=== PATIENT | male | born 1955 | race Caucasian/White ===

== ENCOUNTER → 2020-05-26 14:28 | Outpatient (CLI) | payer OTHER | END | disposition home or self-care (01) | LOC: D.LABREF 14:28 | PROVIDERS: ATTEND Orthopaedic Surgery | DX: M17.11 Unilateral primary osteoarthritis, right knee (principal) ==

== ENCOUNTER 2020-05-27 13:09 | Observation (INO) | payer OTHER ==
[~2020-05-27] VITALS: Ht 172.7 cm; Wt 87.7 kg
[2020-06-28] MEDS ORDERED: SOMA350 MG PO (13:27)
[2020-06-28] MEDS ORDERED: ADDERALL 10 MG10 MG PO (13:28)
[2020-06-28] MEDS ORDERED: ZOLPIDEM TARTRATE PO (13:28)
[2020-06-28] MEDS ORDERED: NEURONTIN600 MG PO (13:29)
[2020-06-28] MEDS ORDERED: TOPROL XL50 MG PO (13:30)
[2020-06-28] MEDS ORDERED: LIPITOR20 MG PO (13:31)
[2020-06-28] MEDS ORDERED: MOBIC7.5 MG PO (13:31)
[2020-06-29 13:42] LABS: BASOPHILS 0.3 % (0-2); EOSINOPHILS 1.3 % (0-7); HEMATOCRIT 39.7 % (42.0-54.0); HEMOGLOBIN 13.7 g/dL (13.5-17.5); IMMATURE GRANULOCYTES 0.1 % (0-5); LYMPHOCYTE ABS# 2.14 10x3/uL (1.32-3.57); LYMPHOCYTES 27.9 % (15-50); MCH 32.9 pg (26.0-34.0); MCHC 34.5 g/dL (31.0-37.0); MCV 95.4 fL (80.0-100.0); MEAN PLATELET VOLUME 9.3 fL (7.4-10.4); MONOCYTES 11.2 % (2-11); NEUTROPHIL ABS# 4.55 10x3/uL (1.78-5.38); NEUTROPHILS 59.2 % (40-80); PLATELET COUNT 297 10x3/uL (130-400); RBC 4.16 10x6/uL (4.20-6.10); RDW 12.4 % (11.5-14.5); WBC 7.7 10x3/uL (4.8-10.8)
[2020-06-29 13:53] LABS: ANION GAP 8.1 mmol/L (8-16); BILIRUBIN NEGATIVE (NEGATIVE); CARBON DIOXIDE 32.8 mmol/L (21.0-32.0); CREATININE - SERUM 1.1 mg/dL (0.6-1.3); KETONE NEGATIVE (NEGATIVE); NITRITE NEGATIVE (NEGATIVE); POTASSIUM - SERUM 3.9 mmol/L (3.5-5.1); UROBILINOGEN NORMAL mg/dL (< 2)
[2020-06-29 13:55] LABS: APTT 30.9 SECONDS (22.8-39.4); INR 1.1 (0.85-1.17); PROTIME 13.1 SECONDS (11.6-15.0)
[2020-07-05] VITALS (11 sets, daily range): BP systolic 118–156; BP diastolic 64–90; Ht 172.7 cm; Wt 87.7 kg
--- NOTE | 2020-07-05 07:39 | NUR ---
CAUTERY PAD PLACED ON LEFT THIGH. PLASMA BLADE USED ON SETTING 6/8. AQUAMANTYS USED ON SETTING 170. CAUTERY PAD LOT#[id number] EXP.01/22/2022
[2020-07-05 10:36] LABS: BASOPHILS 0.1 % (0-2); EOSINOPHILS 0.1 % (0-7); HEMATOCRIT 35.2 % (42.0-54.0); HEMOGLOBIN 12.3 g/dL (13.5-17.5); IMMATURE GRANULOCYTES 0.2 % (0-5); LYMPHOCYTE ABS# 0.59 10x3/uL (1.32-3.57); LYMPHOCYTES 4.3 % (15-50); MCH 32.9 pg (26.0-34.0); MCHC 34.9 g/dL (31.0-37.0); MCV 94.1 fL (80.0-100.0); MEAN PLATELET VOLUME 9.4 fL (7.4-10.4); MONOCYTES 0.4 % (2-11); NEUTROPHIL ABS# 13.17 10x3/uL (1.78-5.38); NEUTROPHILS 94.9 % (40-80); PLATELET COUNT 276 10x3/uL (130-400); RBC 3.74 10x6/uL (4.20-6.10); RDW 12.1 % (11.5-14.5); WBC 13.9 10x3/uL (4.8-10.8)
[2020-07-05 10:44] LABS: ALBUMIN 3.5 g/dL (3.4-5.0); ALKALINE PHOSPHATASE 67 U/L (30-120); ALT (SGPT) 27 U/L (10-68); BILIRUBIN - TOTAL 0.47 mg/dL (0.2-1.3); CALC OSMOLALITY 284 mosm/kg (275-300); CALCIUM 8.3 mg/dL (8.5-10.1); CHLORIDE - SERUM 105 mmol/L (98-107); CREATININE - SERUM 0.9 mg/dL (0.6-1.3); POTASSIUM - SERUM 3.6 mmol/L (3.5-5.1); SODIUM 139 mmol/L (136-145); UREA NITROGEN 27 mg/dL (7-18); eGFR NON AFRICAN AMERICAN 90 mL/min (90-120)
[2020-07-05 10:48] LABS: GLUCOSE 139 mg/dL (74-106)
--- NOTE | 2020-07-05 13:38 | OP ---
PATIENT NAME: HARSHA REN MEDICAL RECORD: [id number] :57 LOCATION:D. D.1210 ADMISSION DATE:07/05/20 SURGEON: ALDEN QUINTANILLA, DATE OF OPERATION: 07/05/2020 PROCEDURE PERFORMED: Right total knee arthroplasty. PREOPERATIVE DIAGNOSIS: Right knee osteoarthritis. POSTOPERATIVE DIAGNOSIS: Right knee osteoarthritis. INDICATIONS: Mr. Ren is a 65-year-old male who has had right knee pain for quite some time. He has tried all manner nonoperative treatment including injections, physical therapy to no avail. He started dealing with the pain and affecting his activities of daily living. He is aware of the risks including infection, bleeding, damage to nerves or vessels, need for further surgery, fracture, loosening of the implants, continued pain, loss of motion, blood clots and even and he signed the consent. SURGEON: Alden Quintanilla MD DESCRIPTION OF SURGERY: The patient received a block by anesthesia preoperatively, taken to the operative suite, given 2 grams of Ancef, 80 mg of gentamicin, a gram of TXA, sedated and LMA was placed. The right lower extremity was then prepped and draped in sterile fashion. A timeout was performed. Everyone was in agreeance with the correct side, site, patient and procedure. I then began by marking out the incision on the anterior knee and covered in Ioban. I then used a 10-blade scalpel, made careful dissection down to the capsule, made a medial parapatellar approach to the knee coagulating any bleeding as we went with the Aquamantys. I then removed part of the fat pad, everted the patella and milled it down and drilled for a 32 patella. I then mixed the cement and put cement on the patella and on the implant and screws in place, removed excess cement. I then exposed the femur, removed the ACL and drilled into the femoral canal. I then cut the distal femur off the intramedullary guide and removed the bone. I then exposed the tibia, cut it and then removed the menisci, recut the tibia to fit the implant and put 10 extension block and it fit very well. I then flexed the knee up and sized the femur to be an 8. An eight 4-in-1 cutting block was then put on the femur and cut through the 4-in-1 cutting block. I then sized the tibia to be an F, pinned into place and impacted on the 8 trial and went up to a 13 poly in between and it fit very well, had good stability in varus valgus stress in flexion, extension and mid flexion. I then removed that, drilled lug holes for the femur, drilled the holes for the tibia, removed the trials, impacted the implants on and put in the poly and squeezed it into place. I then trialled. I ranged the knee, it fit very well, had good motion and good stability to varus and valgus stress in flexion and extension. I then put in a 10% povidone iodine and 500 mL of normal saline solution. I had released the squeezer for the patella at 10 minutes. I then irrigated out the knee with normal saline and put in the joint cocktail injected into the periosteum and then the quad and along the medial tibia. I then put in Rosaura and vancomycin and tobramycin powder and closed the capsule with #1 Vicryl in [id number] fashion and then ran the Stratafix barbed suture along the capsule. Hernan Alonso, certified surgical first aid nurse student then closed the skin with 2-0 Vicryl in inverted interrupted fashion, placed it on the ZipLine, Adaptic, 4 x 4s, ABD, Webril, Gianni wrap and FÁTIMA hose stocking for the knee. He was then awakened and taken to OPERATIVE REPORT [id number] HARSHA REN recovery in stable condition. BLOOD LOSS: 200 mL. COMPLICATIONS: None. TRANSINT:[id number] Voice Confirmation ID: [id number] DOCUMENT ID: [id number] ALDEN QUINTANILLA DO at 1338 CC: [id number] DICTATION DATE: 07/05/20 0848 STAMP CLASSIFIER: 07/05/20 1306 ADM IN [place] [id number] [place] [address]
--- NOTE | 2020-07-05 19:00 | NUR ---
REPORT GIVEN BY JONG CARBONE
--- NOTE | 2020-07-05 20:00 | NUR ---
PT ASSESSMENT COMPLETED. PT IS DOING WELL. PT STATES THAT HE DOES NOT WANT PERCOCET FOR PAIN B/C IT MAKES HIM SICK AT HIS STOMACH. I TOLD HIM I'D MAKE NOTE OF THAT. INSTRUCTED PT HOW TO USE IS. PT DID VERY WELL. PT HAS 1/2 NS INFUSING AT 50 ML/HR IN HIS RIGHT FOREARM. NO C/O AT THIS TIME.
--- NOTE | 2020-07-05 21:30 | NUR ---
PM MEDS GIVEN. PT RECEIVED AMBIEN FOR SLEEP AND TORADOL FOR PAIN WITH HIS OTHER MEDS. HE HAS NO C/O.
[2020-07-06 01:00] VITALS: BP 100/56
--- NOTE | 2020-07-06 01:00 | NUR ---
VS TAKEN. PT IS NOT C/O PAIN AT THIS TIME. HE HAS BEEN AWAKE FOR A LITTLE WHILE B/C HE CAN'T SLEEP. VOIDED 400 ML
[2020-07-06 04:10] VITALS: BP 102/58
--- NOTE | 2020-07-06 04:21 | NUR ---
PT WAS GIVEN IV TORADOL. HE RATES HIS PAIN A 6. I TOLD HIM TO LET DR. QUINTANILLA KNOW THAT PERCOCET MAKES HIM SICK B/C HE WOULD PROBABLY NEED OTHER MEDS WHEN HE STARTS THERAPY.
--- NOTE | 2020-07-06 06:29 | NUR ---
PT RESTING QUIETLY IN HIS ROOM. CPM RUNNING
--- NOTE | 2020-07-06 07:30 | NUR ---
AWAKE AND ALERT. ORIENTED X3. NO C/OA AT THIS TIME. LUNGS ARE CLEAR BILATERALLY, NO COUGH NOTED. SKIN IS INTACT WTIHOUT REDNESS EXCEPT INCISION TO RIGHT KNEE, WHICH HAS A DRY INTACT DRESSING INPLACE. IV TO RIGHT FOREARM IS PATENT WITHOUT REDNESS AT INSERTION SITE. DENIES NEEDS.
[2020-07-06 07:46] VITALS: BP 135/62
[2020-07-06 07:51] LABS: HEMATOCRIT 32.7 % (42.0-54.0); HEMOGLOBIN 11.4 g/dL (13.5-17.5); MCHC 34.9 g/dL (31.0-37.0); MCV 94.8 fL (80.0-100.0); MEAN PLATELET VOLUME 9.6 fL (7.4-10.4); RBC 3.45 10x6/uL (4.20-6.10); RDW 12.4 % (11.5-14.5)
[2020-07-06 08:06] LABS: ALBUMIN 3.5 g/dL (3.4-5.0); ALKALINE PHOSPHATASE 60 U/L (30-120); BILIRUBIN - TOTAL 0.52 mg/dL (0.2-1.3); CALC OSMOLALITY 281 mosm/kg (275-300); CALCIUM 8.7 mg/dL (8.5-10.1); CARBON DIOXIDE 28.5 mmol/L (21.0-32.0); CHLORIDE - SERUM 102 mmol/L (98-107); CREATININE - SERUM 0.9 mg/dL (0.6-1.3); GLUCOSE 94 mg/dL (74-106); PROTEIN - SERUM 5.8 g/dL (6.4-8.2); SODIUM 140 mmol/L (136-145); UREA NITROGEN 21 mg/dL (7-18); eGFR NON AFRICAN AMERICAN 90 mL/min (90-120)
[2020-07-06 08:08] LABS: ALT (SGPT) 20 U/L (10-68); POTASSIUM - SERUM 4.3 mmol/L (3.5-5.1)
--- NOTE | 2020-07-06 09:00 | NUR ---
ATE MOST OF BREAKFAST. TOOK AM MEDS WITHOUT DIFFICULTY. DENIES NEEDS.
--- NOTE | 2020-07-06 10:00 | NUR ---
AMBULATED OVER 200 FEET WITH RW SBA. NO INCREASED PAIN WITH ACTIVITY. POSITIONED IN CHIAR AT BEDSIDE FOR COMFORT.
--- NOTE | 2020-07-06 11:32 | MORECARE ---
CASE MANAGEMENT DISCHARGE SUMMARY PATIENT: HARSHA SCHUMACHER UNIT: [id number] ADM DATE: 07/05/20 AGE: 65 : 57 SEX: M ROOM/BED: D.1210 AUTHOR: TINA,DOC PHYSICIAN: REFERRING PHYSICIAN: MARYCHUY QUINTANILLA DO DATE OF SERVICE: 07/06/20 Case Management Discharge Planning Summary DCP REVIEW SUMMARY ANTICIPATED D/C DATE: 07/06/2020 EXPECTED LOS : 1 CASE STATUS: DCP Initiated INITIAL REVIEW: 07/06/2020 INITIAL REVIEWER: Kalyani Naik FINAL DISCHARGE DISPOSITION: : FINAL REVIEWER: FINAL REVIEW DATE: DCP Focus Questions & Answers DCP Screen QUESTION: ANSWER High Risk Factors: : None Walking limitation: Patient stated self rated walking limitation present? : No Age: : 46 - 65 Prior living environment: : Lives with others Disability ranking: : Grade 1: No significant disability DCP Evaluation QUESTION: ANSWER Patient's ability to cope with chronic illness : d. No chronic illness Would patient like to participate in any Care Coordination programs (if applicable): : Not applicable Mental health screen: : No mental health history DCP Re-evaluation QUESTION: ANSWER Would patient like to participate in any Care Coordination programs (if applicable): : Not applicable PATIENT: HARSHA SCHUMACHER ENCOUNTER: [id number] MEDICAL RECORD#: [id number] ADMISSION DATE: 07/05/2020 DISCHARGE DATE: ATTENDING MD: MARYCHUY WILSON : AGE: 65 MARITAL STATUS: S DC PLAN ID: [id number] FACILITY: [facility] PRINTED ON: 07/06/20 11:32 CT All edits/amendments must be made on the electronic document DICTATION DATE: 07/06/20 113 OIL FURNACE INSTALLER: DM 07/06/20 1132 RPT#: [id number] DC DATE: STATUS: ADM IN [facility] [address] [place] [address] END OF REPORT
--- NOTE | 2020-07-06 11:43 | MORECARE ---
CASE MANAGEMENT DISCHARGE SUMMARY PATIENT: HARSHA SCHUMACHER UNIT: [id number] ADM DATE: 07/05/20 AGE: 65 : 57 SEX: M ROOM/BED: D.1210 AUTHOR: TINA,DOC PHYSICIAN: REFERRING PHYSICIAN: MARYCHUY QUINTANILLA DO DATE OF SERVICE: 07/06/20 Case Management Discharge Planning Summary COMMENTS ENTERED DATE: 07/06/20 11:34 CT COMMENT TYPE: Discharge Planning REVIEWER: Kalyani Naik CM met with patient to complete initial dc planning assessment. CM educated patient on the CM role and verbal consent given by patient to complete assessment. CM verified patient's address, phone number, and emergency contact phone numbers. Patient lives in a one level condo with his sister. At discharge patient plans to return and feels this is a safe discharge. CM discussed availability of home health, rehab services, and medical equipment. Patient chose outpatient therapy at [facility]. CM called and spoke to Tae. His first visit will be tomorrow at 1100. Patient reports transportation to and from therapy will be his sister. Transportation provider at discharge will be his sister. CM will continue to follow and will assist as needed with dc plans/needs. OP PT - [facility] 07/07 AT 1100 DCP REVIEW SUMMARY ANTICIPATED D/C DATE: 07/06/2020 EXPECTED LOS : 1 CASE STATUS: DCP Initiated INITIAL REVIEW: 07/06/2020 INITIAL REVIEWER: Kalyani Naik FINAL DISCHARGE DISPOSITION: : FINAL REVIEWER: FINAL REVIEW DATE: DCP Focus Questions & Answers DCP Screen QUESTION: ANSWER High Risk Factors: : None Walking limitation: Patient stated self rated walking limitation present? : No Age: : 46 - 65 Prior living environment: : Lives with others Disability ranking: : Grade 1: No significant disability DCP Evaluation QUESTION: ANSWER Patient and/or caregiver agree upon recommended discharge plan? : Yes Patient's current cognitive status: : *Oriented to person, place, situation, time and present Patient gives permission to discuss discharge plans with: (name, relationship and number) : Sol Pulido - sister - [phone] Patient's ability to cope with chronic illness : d. No chronic illness Does the patient have the ability to pay for or attain post discharge needs / services? : Yes Functional screen assessment: : No issues identified Physical Status: : Independent with ADL's Equipment needed for post hospitalization: : None Is there a likelihood that the patient will require additional services to return to the preadmission environment? : No Living Arrangements: : Home with others Results of this evaluation have been discussed with: : Patient Patient with capacity for self-care or can be cared for in same environment as prior to hospitalization? : Yes Living arrangements comments: : Sol Pulido - sister Baseline cognitive status: : *Oriented to person, place, situation, time and present Physical environment modification needed / anticipated for discharge: : No Medication Management: : Patient states can afford medications Planned post hospital services available for patient? : Yes Pharmacy name(s): : [facility] Planned post hospital services covered by insurance plan? : Yes Does Patient have transportation to get home and to follow-up medical appointments when discharged from the hospital? : Yes Would patient like to participate in any Care Coordination programs (if applicable): : Not applicable Equipment in use: : Walker - Rolling Equipment in use: : Shower Chair Equipment in use: : Other Other Equipment comments: : CPM ELEVATED TOILET SEAT Mental health screen: : No mental health history Abuse/Neglect: : None Resources / Services in place: : None DCP Re-evaluation QUESTION: ANSWER Would patient like to participate in any Care Coordination programs (if applicable): : Not applicable PATIENT: HARSHA SCHUMACHER ENCOUNTER: [id number] MEDICAL RECORD#: [id number] ADMISSION DATE: 07/05/2020 DISCHARGE DATE: ATTENDING MD: MARYCHUY WILSON : AGE: 65 MARITAL STATUS: S DC PLAN ID: [id number] FACILITY: [facility] PRINTED ON: 07/06/20 11:43 CT All edits/amendments must be made on the electronic document DICTATION DATE: 07/06/20 1143 HARVESTING SUPERVISOR: DM 07/06/20 1143 RPT#: [id number] DC DATE: STATUS: ADM IN [facility] [address] [place] [address] END OF REPORT
[2020-07-06] MEDS ORDERED: ELIQUIS2.5 MG PO (12:22)
[2020-07-06] MEDS ORDERED: REQUIP0.25 MG PO (12:23)
[2020-07-06] MEDS ORDERED: VISTARIL50 MG PO (12:23)
[2020-07-06] MEDS ORDERED: ULTRAM50 MG PO (12:23)
--- NOTE | 2020-07-06 13:45 | NUR ---
DISCHARGED TO HOME AMBULATORY WITH SISTER. DISCHARGE INSTRUCTIONS GIVEN BOTH VERBALLY AND WRITTEN. ALL QUESTIONS ANSWERED. PATIENT AND SISTER VERBALIZED UNDERSTANDING OF SAME. DRESSING TO RIGHT KNEE CHANGED, INCISION IS CLEAN DRY AND WELL APPROXIMATED. SL TO RIGHT FOREARM D/C WITH CATHETER INTACT. NEEDED PRESCRIPTIONS GIVEN TO PATIENT. EXTRA DRESSINGS SENT HOME.
--- NOTE | 2020-07-06 15:33 | MORECARE ---
CASE MANAGEMENT DISCHARGE SUMMARY PATIENT: HARSHA SCHUMACHER UNIT: [id number] ADM DATE: 07/05/20 AGE: 65 : 57 SEX: M ROOM/BED: D.1210 AUTHOR: TINA,DOC PHYSICIAN: REFERRING PHYSICIAN: MARYCHUY QUINTANILLA DO DATE OF SERVICE: 07/06/20 Case Management Discharge Planning Summary COMMENTS ENTERED DATE: 07/06/20 11:34 CT COMMENT TYPE: Discharge Planning REVIEWER: Kalyani Naik CM met with patient to complete initial dc planning assessment. CM educated patient on the CM role and verbal consent given by patient to complete assessment. CM verified patient's address, phone number, and emergency contact phone numbers. Patient lives in a one level condo with his sister. At discharge patient plans to return and feels this is a safe discharge. CM discussed availability of home health, rehab services, and medical equipment. Patient chose outpatient therapy at [facility]. CM called and spoke to Tae. His first visit will be tomorrow at 1100. Patient reports transportation to and from therapy will be his sister. Transportation provider at discharge will be his sister. CM will continue to follow and will assist as needed with dc plans/needs. OP PT - [facility] 07/07 AT 1100 DCP REVIEW SUMMARY ANTICIPATED D/C DATE: 07/06/2020 EXPECTED LOS : 1 CASE STATUS: DCP Initiated INITIAL REVIEW: 07/06/2020 INITIAL REVIEWER: Kalyani Naik FINAL DISCHARGE DISPOSITION: : FINAL REVIEWER: FINAL REVIEW DATE: DCP Focus Questions & Answers DCP Screen QUESTION: ANSWER High Risk Factors: : None Walking limitation: Patient stated self rated walking limitation present? : No Age: : 46 - 65 Prior living environment: : Lives with others Disability ranking: : Grade 1: No significant disability DCP Evaluation QUESTION: ANSWER Patient and/or caregiver agree upon recommended discharge plan? : Yes Patient's current cognitive status: : *Oriented to person, place, situation, time and present Patient gives permission to discuss discharge plans with: (name, relationship and number) : Sol Pulido - sister - [phone] Patient's ability to cope with chronic illness : d. No chronic illness Does the patient have the ability to pay for or attain post discharge needs / services? : Yes Functional screen assessment: : No issues identified Physical Status: : Independent with ADL's Equipment needed for post hospitalization: : None Is there a likelihood that the patient will require additional services to return to the preadmission environment? : No Living Arrangements: : Home with others Results of this evaluation have been discussed with: : Patient Patient with capacity for self-care or can be cared for in same environment as prior to hospitalization? : Yes Living arrangements comments: : Sol Pulido - sister Baseline cognitive status: : *Oriented to person, place, situation, time and present Physical environment modification needed / anticipated for discharge: : No Medication Management: : Patient states can afford medications Planned post hospital services available for patient? : Yes Pharmacy name(s): : [facility] Planned post hospital services covered by insurance plan? : Yes Does Patient have transportation to get home and to follow-up medical appointments when discharged from the hospital? : Yes Would patient like to participate in any Care Coordination programs (if applicable): : Not applicable Equipment in use: : Walker - Rolling Equipment in use: : Shower Chair Equipment in use: : Other Other Equipment comments: : CPM ELEVATED TOILET SEAT Mental health screen: : No mental health history Abuse/Neglect: : None Resources / Services in place: : None DCP Re-evaluation QUESTION: ANSWER Would patient like to participate in any Care Coordination programs (if applicable): : Not applicable PATIENT: HARSHA SCHUMACHER ENCOUNTER: [id number] MEDICAL RECORD#: [id number] ADMISSION DATE: 07/05/2020 DISCHARGE DATE: 07/06/2020 ATTENDING MD: MARYCHUY WILSON : AGE: 65 MARITAL STATUS: S DC PLAN ID: [id number] FACILITY: [facility] PRINTED ON: 07/06/20 15:33 CT All edits/amendments must be made on the electronic document DICTATION DATE: 07/06/20 153 MACHINE CANDLE MOLDER: CHOLO 07/06/20 153 RPT#: [id number] DC DATE:07/06/20 STATUS: DIS IN [facility] [address] [place] [address] END OF REPORT
[2020-07-06] MEDS ORDERED: ZOFRAN ODT4 MG/UDTAB PO (23:00)
[2020-07-06] MEDS ORDERED: HYDROCODON-ACE1 EA10 PO (23:00)
== END 2020-07-06 13:45 | disposition home or self-care (01) ==
LOC: D.M3 07-05 05:27 → OBSVTIME 07-05 05:27 → D.M3 07-05 05:27 → D.SDCHOLD 07-05 05:27 → D.OPS 07-05 07:00 → EDSTATUS 07-05 07:00 → D.SDCHOLD 07-05 07:00 → D.M3 07-05 09:30
PROVIDERS: Emergency Medicine; Family Medicine; ADMIT Orthopaedic Surgery; ATTEND Orthopaedic Surgery
DX: M17.11 Unilateral primary osteoarthritis, right knee (principal); I10 Essential (primary) hypertension

== ENCOUNTER 2020-06-29 08:00 | Outpatient (CLI) | payer OTHER ==
[~2020-06-29 08:00] MED LIST: ADDERALL 10 MG10 MG PO; LIPITOR20 MG PO; MOBIC7.5 MG PO; NEURONTIN600 MG PO; SOMA350 MG PO; TOPROL XL50 MG PO; ZOLPIDEM TARTRATE PO
[2020-07-06 21:59] VITALS: BMI 27.7
== END 2020-06-29 08:01 | disposition home or self-care (01) ==
LOC: D.OPS 08:00
PROVIDERS: ATTEND Internal Medicine
DX: M17.11 Unilateral primary osteoarthritis, right knee (principal); I10 Essential (primary) hypertension

== ENCOUNTER 2020-07-06 21:54 | Emergency (ER) | payer OTHER ==
[~2020-07-06] VITALS: Ht 172.7 cm; Wt 82.7 kg
[~2020-07-06 21:54] MED LIST changes: +ELIQUIS2.5 MG PO; +REQUIP0.25 MG PO; +ULTRAM50 MG PO; +VISTARIL50 MG PO
[2020-07-06 21:59] VITALS: Ht 172.7 cm; Wt 82.7 kg
[2020-07-06] MEDS ORDERED: HYDROCODON-ACE1 EA10 PO (23:00)
[2020-07-06] MEDS ORDERED: ZOFRAN ODT4 MG/UDTAB PO (23:00)
[2020-07-06 23:12] VITALS: BP 147/88
== END 2020-07-06 23:06 | disposition home or self-care (01) ==
LOC: D.ER 21:54
DX: G89.18 Other acute postprocedural pain (principal); I10 Essential (primary) hypertension